=== PATIENT | female | born 1935 | race Caucasian/White ===

== ENCOUNTER 2017-11-23 11:53 | Emergency (ER) | payer MEDICARE, OTHER ==
[~2017-11-23] VITALS: Ht 157.5 cm; Wt 57.1 kg
[~2017-11-23 11:53] MED LIST: ACETAMINOPHEN325 M1 PO; ADVAIR 250-501 EACH IH; ALBUTEROL INH INH; ALBUTEROL2.5 MG/31 INH; ASCORBIC ACID250 MG; ASPIRIN EC81 M1 PO; AUGMENTIN 875875 MG PO; AVELOX 400 MG400 MG PO; AZITHROMYCIN 2250 MG PO; CEFTIN500 MG; COMBIVENT; COMBIVENT INH; DUONEB 2.5-0.5 M3 ML INH; FISH OIL 1,0001 EAC5 PO; FISH OIL 1,001000 M1 PO; IRON325 PO; MECLIZINE HCL12.5 MG PO; MIRALAX17 GM PO; MUCUS ER600 MG PO; MULTIVITAMINS; Mucinex PO; NOHOMEMEDICATIONS; PREDNISONE 10 M10 M1; PREDNISONE 10 M10 M1 PO; PREDNISONE 10 M10 MG PO; PRILOSEC40 MG PO; PROTONIX40 M1 PO; PROTONIX40 M2; PROTONIX40 M2 PO; TESSALON200 MG PO; VIBRAMYCIN 100100 MG PO; VITAMIN C 250250 MG PO; XANAX 0.25 MG0.25 MG PO; ZPAK PO; [UNRECOGNIZED DRUG - OTHER]
[2017-11-23 13:07] LABS: ABSOLUTE EOSINOPHILS 0.1 thou/uL (0.0-0.7); ABSOLUTE LYMPHOCYTES 0.7 thou/uL (0.8-5.3); ABSOLUTE MONOCYTES 0.3 thou/uL (0.0-1.2); ABSOLUTE NEUTROPHILS 1.6 thou/uL (1.6-8.1); BASOPHILS 1.1 %; EOSINOPHILS 3.8 %; HEMATOCRIT 33.8 % (37.0-47.0); HEMOGLOBIN 11.1 gm/dL (12.0-15.0); LYMPHOCYTES 24.2 %; MCH 31.2 pg (26.0-34.0); MCHC 32.8 g/dL (28.0-37.0); MONOCYTES 11.6 %; NUCLEATED RBCS 0 /100WBC; PLATELET COUNT* 133 thou/uL (150-400); POLYS 59.3 %; RBC 3.55 mil/uL (4.20-5.00); RDW-CV 14.9 % (10.5-14.5); WBC 2.7 thou/uL (4.0-11.0)
[2017-11-23 13:10] LABS: URINE BILIRUBIN NEGATIVE (Negative); URINE BLOOD NEGATIVE (Negative); URINE CLARITY CLEAR; URINE COLOR YELLOW; URINE GLUCOSE-RANDOM NEGATIVE (Negative); URINE KETONES NEGATIVE (Negative); URINE LEUKOCYTES-REFLEX NEGATIVE (Negative); URINE NITRITE-REFLEX NEGATIVE (Negative); URINE PROTEIN NEGATIVE (Negative); URINE SPECIFIC GRAVITY 1.025 (1.005-1.030); URINE UROBILINOGEN 0.2 E.U./dl (0.2-1.0)
[2017-11-23 13:16] LABS: ANION GAP 2 mmol/L (7-16); BUN 21 mg/dL (7-18); CALCIUM 8.9 mg/dL (8.5-10.1); CHLORIDE 103 mmol/L (98-107); CO2 39 mmol/L (21-32); CREATININE 0.5 mg/dL (0.6-1.3); GLUCOSE 96 mg/dL (70-99); POTASSIUM 4.5 mmol/L (3.5-5.1); SODIUM 144 mmol/L (136-145)
[2017-11-23 13:27] LABS: ALBUMIN 3.4 g/dL (3.4-5.0); ALKALINE PHOSPHATASE 62 U/L (46-116); NT-PRO BRAIN NAT PEPTIDE 1047 pg/mL (<300); SGOT 21 U/L (15-37); SGPT 20 U/L (30-65); TOTAL BILIRUBIN 0.3 mg/dL (<0.1-1.0); TOTAL PROTEIN 6.5 g/dL (6.4-8.2); TROPONIN-I LEVEL <0.06 ng/mL (<0.06)
--- NOTE | 2017-11-23 15:29 | EKG ---
[place] [address] ELECTROCARDIOGRAM REPORT Name: SHANTE JOLLY Room: [facility]#: [id number] Admission: 11/23/17 Attend Phys: Discharge: Date of : 33 Report #: [id number] THIS REPORT FOR: //name// [facility] ED Test Date: 2017-11-23 Test Time: 11:59:23 Pat Name: SHANTE JOLLY Department: Room: Gender: F Employee Relations Director: : 1935 Requested By: Amina Vargas Order Number: [id number] Reading MD: Ajith Mccord Measurements Intervals [place] Rate: 87 P: 49 CO: 156 QRS: 46 QRSD: 80 T: 70 QT: 385 QTc: 463 Interpretive Statements Sinus rhythm Multiple premature complexes, vent & supraven Probable anteroseptal infarct, old Compared to ECG 07/06/2017 09:08:37 Myocardial infarct finding now present Electronically Signed On 11-23-2017 15:29:16 SHIP CARPENTER by Ajith Mccord [email or web address] <ELECTRONICALLY SIGNED> By: Ajith Mccord MD, [facility] 11/23/17 1529 1159 1159 Ajith Mccord MD, [facility] /EPI
[2017-11-23 16:50] VITALS: BP 130/56
--- NOTE | 2017-11-23 17:01 | 2DMMODE ---
[place] [address] 2 D/M-MODE ECHOCARDIOGRAM Name: SHANTE JOLLY Room: [facility]#: [id number] Admission: 11/23/17 Attend Phys: Discharge: 11/23/17 Date of : 33 Date of Service: 11/23/17 1701 Report #: [id number] THIS REPORT FOR: //name// APPROVED REPORT Study performed: 11/23/2017 14:11:18 EXAM: Comprehensive 2D, Doppler, and color-flow Echocardiogram Patient Location: In-Patient Room #: ER Status: routine BSA: 1.57 HR: 74 bpm BP: 136/81 mmHg Rhythm: NSR Other Information Study Quality: Good Indications Arrhythmia Murmur 2D Dimensions LVEF(%): 57.38 (>50%) IVSd: 11.99 (7-11mm) LVOT Diam: 19.60 (18-24mm) LVDd: 45.09 mm PWd: 11.22 (7-11mm) LVDs: 31.55 (25-40mm) Aortic Root: 29.38 mm Mills's LVEF: 57.38 % Volumes Left Atrial Volume (Systole) LA ESV Index: 40.50 mL/m2 Aortic Valve AoV Peak Marcus.: 3.50 m/s AO Peak Gr.: 48.99 mmHg LVOT Max P.06 mmHg AO Mean Gr.: 29.80 mmHg LVOT Mean P.68 mmHg LVOT Max V: 0.88 m/s AO V2 VTI: 76.91 cm LVOT Mean V: 0.60 m/s PIO (VTI): 0.83 cm2 LVOT V1 VTI: 21.06 [place] [address] 2 D/M-MODE ECHOCARDIOGRAM Name: SHANTE JOLLY Room: [facility]#: [id number] Admission: 11/23/17 Attend Phys: Discharge: 11/23/17 Date of : 33 Date of Service: 11/23/17 1701 Report #: [id number] E/A Ratio: 0.76 MV Decel. Time: 314.94 ms MV E Max Marcus.: 1.05 m/s MV PHT: 91.33 ms MVA (PHT): 2.41 cm2 TDI E/Lateral E': 13.13 E/Medial E': 17.50 Medial E' Marcus.: 0.06 m/s Lateral E' Marcus.: 0.08 m/s Pulmonary Valve PV Peak Marcus.: 0.82 m/s PV Peak Gr.: 2.70 mmHg Left Ventricle The left ventricle is normal size. There is normal LV segmental wall motion. Severe concentric left ventricular hypertrophy. Left ventricular systolic function is normal. The left ventricular ejection fraction is within the normal range. LVEF is 60-65%. Grade I - abnormal relaxation pattern. Right Ventricle The right ventricle is normal size. The right ventricular systolic function is normal. Atria Left atrium is moderately dilated. The right atrium size is normal. Aortic Valve Aortic valve leaflets are sclerotic with decreased opening. Trace aortic regurgitation. Severe aortic stenosis. Mitral Valve There is mitral annular calcification. Trace mitral regurgitation. No evidence of mitral valve stenosis. Tricuspid Valve The tricuspid valve is normal in structure. Unable to assess PA pressure. Trace tricuspid regurgitation. Pulmonic Valve The pulmonary valve is normal in structure. Mild pulmonic regurgitation. [place] [address] 2 D/M-MODE ECHOCARDIOGRAM Name: SHANTE JOLLY Room: [facility]#: [id number] Admission: 11/23/17 Attend Phys: Discharge: 11/23/17 Date of : 34 Date of Service: 11/23/17 1701 Report #: [id number] The aortic root is normal in size. IVC is normal in size and collapses with >50% inspiration Pericardium There is no pericardial effusion. <Conclusion> LVEF is 60-65%. Severe aortic stenosis. Trace aortic regurgitation. No evidence of mitral valve stenosis. Trace mitral regurgitation. Left atrium is moderately dilated. Severe concentric left ventricular hypertrophy. There is normal LV segmental wall motion. <ELECTRONICALLY SIGNED> By: Ajith Mccord MD, FACC 11/23/171700 00 00 Ajith Mccord MD, FACC /INF
== END 2017-11-23 16:51 | disposition home or self-care (01) ==
LOC: M.ERS 11:53
PROVIDERS: Personal Emergency Response Attendant
DX: I49.9 Cardiac arrhythmia, unspecified (principal); I49.3 Ventricular premature depolarization; J44.9 Chronic obstructive pulmonary disease, unspecified; Z98.890 Other specified postprocedural states

== ENCOUNTER 2018-02-24 14:37 | Inpatient (IN) | payer MEDICARE, OTHER ==
[~2018-02-24] VITALS: Ht 160 cm; Wt 52.6 kg
[2018-02-24 14:38] VITALS: BP 103/41
[2018-02-24] MEDS ORDERED: REMERON15 MG PO (14:51)
[2018-02-24 15:13] LABS: ABSOLUTE EOSINOPHILS 0.1 thou/uL (0.0-0.7); ABSOLUTE LYMPHOCYTES 0.5 thou/uL (0.8-5.3); ABSOLUTE MONOCYTES 0.4 thou/uL (0.0-1.2); ABSOLUTE NEUTROPHILS 2.9 thou/uL (1.6-8.1); BASOPHILS 0.7 %; EOSINOPHILS 2.4 %; HEMATOCRIT 25.1 % (37.0-47.0); HEMOGLOBIN 7.8 gm/dL (12.0-15.0); LYMPHOCYTES 13.8 %; MCH 32.3 pg (26.0-34.0); MCHC 31.1 g/dL (28.0-37.0); MCV 103.8 fL (80.0-100.0); MONOCYTES 10.1 %; NUCLEATED RBCS 0 /100WBC; PLATELET COUNT* 180 thou/uL (150-400); RBC 2.42 mil/uL (4.20-5.00); WBC 3.9 thou/uL (4.0-11.0)
[2018-02-24 15:17] LABS: ANION GAP 0 mmol/L (7-16); BUN 22 mg/dL (7-18); CALCIUM 8.6 mg/dL (8.5-10.1); CHLORIDE 103 mmol/L (98-107); CO2 42 mmol/L (21-32); CREATININE 0.6 mg/dL (0.6-1.3); GLUCOSE 121 mg/dL (70-99); SODIUM 145 mmol/L (136-145)
[2018-02-24 15:28] LABS: ALBUMIN 2.8 g/dL (3.4-5.0); ALKALINE PHOSPHATASE 54 U/L (46-116); NT-PRO BRAIN NAT PEPTIDE 3198 pg/mL (<300); SGOT 23 U/L (15-37); SGPT 22 U/L (30-65); TOTAL BILIRUBIN 0.1 mg/dL (<0.1-1.0); TOTAL PROTEIN 5.6 g/dL (6.4-8.2); TROPONIN-I LEVEL <0.06 ng/mL (<0.06)
[2018-02-24 17:45] VITALS: BP 150/51
[2018-02-24 17:58] VITALS: BP 126/66
[2018-02-24] MEDS ORDERED: FERREX 150150 MG PO (18:00)
[2018-02-24 18:10] VITALS: BP 113/55; BP 128/64; BP 130/42; BP 133/40
--- NOTE | 2018-02-24 18:31 | NUR ---
REPORT RECIEVED FROM SELENA COTE IN ER OF EXPECTED TRANSFER @ 1730- DX: SOA WITH SLIGHT CONFUSSION PER DAUGHTER- PT ARRIVED TO ROOM 210 PER CART AT 1745, ASSIST X1 TO BED- MACHINE STONECUTTER PLACED INDICATED, TRACING SR-DAUGHTER AT SIDE AT TIME OF ADMISSION- PT A&O X4- CONTINENT OF BOWEL BLADDER- SBA WITH TRANSFERS FOR SAFETY- VS- 98.3 22 150/51 99 985 ON 4L VIA NC- DYSPNEA NOTED ON EXERTION- ABDOMEN SOFT/ROUND/NON-TENDER, BS X4 QUADS- PT REPORTS TO HAVE HAD BM THIS AM- TRACE EDEAM NOTED TO BLE- SKIN C/D/I- EYE SIGHT GOOD WITH AIDES IN PLACE- UPPPER DENTURE NOTED- IV NOTED TO RIGHT AC INTACT WITH NS STARTED PER ORDERS FOR BLOOD TO BE TRANSFUSED UPON ADMISSION- BLODD RECIEVED ADN VERIFIED PER PROTOCOL WITH START TIME OF 1734- VS REMAIN STABLE WITH NO ADVERSE RECTIONS TO NOTE AT THIS TIME- PT DENIES ANY C/O PAIN/DISCOMFORT AT THIS TIME- GOOD PO INTAKE NOTED WITH DINNER- CALL LIGHT ADN PERSONAL BELONGINGS WITH IN REACH- FREQUENT CHECKS IN PLACE R/T SAFETY/NEEDS- ALL NEEDS MET AT THIS TIME-WCTM
[2018-02-24 19:35] VITALS: BP 113/55
[2018-02-24 20:00] VITALS: BP 113/55
[2018-02-24 23:08] LABS: HEMATOCRIT 30.2 % (37.0-47.0)
[2018-02-24 23:09] LABS: HEMOGLOBIN 9.8 gm/dL (12.0-15.0)
[2018-02-25 00:07] VITALS: BP 131/62
--- NOTE | 2018-02-25 03:21 | NUR ---
ASSUMED CARE OF PT AT 1930, NURSING ASSESSMENT COMPLETED AT START OF SHIFT, 1 UNIT PRBCS ADMINISTERED THIS SHIFT. NO S/S OF ADVERSE SIDE EFFECTS. VSS. HOURLY ROUNDING COMPLETED, FALL PRECAUTIONS IN PLACE. PT TRACING ATRIAL BIGEMINY ON PHYSICIAN'S AIDE THIS SHIFT. PT DENIES PAIN. CALL LIGHT WITHIN REACH.
[2018-02-25 03:52] VITALS: BP 117/51
[2018-02-25 05:15] LABS: HEMATOCRIT 27.9 % (37.0-47.0); HEMOGLOBIN 9.1 gm/dL (12.0-15.0); MCH 32.7 pg (26.0-34.0); MCHC 32.8 g/dL (28.0-37.0); MCV 99.9 fL (80.0-100.0); MPV 10.7 fl. (7.2-11.1); NUCLEATED RBCS 0 /100WBC; PLATELET COUNT* 173 thou/uL (150-400); RBC 2.79 mil/uL (4.20-5.00); RDW-CV 18.8 % (10.5-14.5); WBC 3.2 thou/uL (4.0-11.0)
[2018-02-25 05:51] LABS: ABSOLUTE LYMPHOCYTES 0.4 thou/uL (0.8-5.3); ABSOLUTE MONOCYTES 0.1 thou/uL (0.0-1.2); ABSOLUTE NEUTROPHILS 2.7 thou/uL (1.6-8.1); PLATELET ESTIMATE ADEQUATE
[2018-02-25 05:52] LABS: ANISOCYTOSIS 1+; LARGE PLATELETS OCCASIONAL; POIKILOCYTOSIS 1+; POLYCHROMASIA 1+
[2018-02-25 06:20] LABS: ALBUMIN 2.8 g/dL (3.4-5.0); CALCIUM 8.5 mg/dL (8.5-10.1); CREATININE 0.5 mg/dL (0.6-1.3); POTASSIUM 4.8 mmol/L (3.5-5.1); TOTAL BILIRUBIN 0.3 mg/dL (<0.1-1.0); TOTAL PROTEIN 5.3 g/dL (6.4-8.2)
[2018-02-25 08:00] VITALS: BP 124/56
--- NOTE | 2018-02-25 10:05 | EKG ---
[place] [address] ELECTROCARDIOGRAM REPORT Name: SHANTE JOLLY Room: [address] ADM IN [facility]#: [id number] Admission: 02/24/18 Attend Phys: Nicki Jasmine Discharge: Date of : 34 Report #: [id number] THIS REPORT FOR: //name// [facility] ED Test Date: 2018-02-24 Test Time: 14:47:22 Pat Name: SHANTE JOLLY Department: Room: [facility] Gender: F Research Quality Assurance Specialist: MS : 1935 Requested By: Benjamin May Order Number: [id number] MD: Tay Carrasco Measurements Intervals [place] Rate: 83 P: 85 AL: 150 QRS: 18 QRSD: 82 T: 78 QT: 383 QTc: 450 Interpretive Statements atrial fibrillation Borderline T abnormalities, lateral leads Compared to ECG 11/23/2017 11:59:23 T-wave abnormality now present Sinus rhythm no longer present Electronically Signed On 02-25-2018 10:05:33 CDT by Tay Carrasco [email or web address] <ELECTRONICALLY SIGNED> By: Tay Carrasco MD, [facility] 02/25/18 1005 1447 1447 Tay Carrasco MD, [facility] /EPI
--- NOTE | 2018-02-25 11:05 | NUR ---
ASSUMED RESPONSIBILITY OF PT THIS AM PT IS ALERT AND ORIENTED FORGETFUL AT TIMES SR ON THE MONITOR HS NURSE STATED BIGEMINY LAST HS HEART HEALTHY DIET WITH GOOD APPETITE DRY WARM SKIN NO EDEMA NOTED BLE ELEVATED 5L NC WEARS 2L NC AT HOME SATS 94% FATIGUE WHEN UP 26 RESP SLIGHTLY LABORED LSCTA DIMINISHED IN BASES DARK YELLOW URINE NO BM YET CALL LIGHT IN REACH GI TO SCHEDULE EGD FOR TOMORROW FOR PT NOT F/U OUTPATIENT BEFORE AFTER A CAPSULE DONE WITH A BLEED NOTED
[2018-02-25 12:00] VITALS: BP 107/51
--- NOTE | 2018-02-25 15:23 | NUR ---
CM ASSESSMENT: Pt is A&O. Resides at [facility]. Pt known to this Cm from previous hospital stay. Pt uses a RW for mobility. Hx of [facility] skilled. Independent with ADLs, Pt hires someone to clean her home. No hx of HH. Pt wears home o2 through [employer]. Supportive family that is involved in POC. Scheduled to have an EGD tomorrow. Following.
[2018-02-25 15:36] VITALS: BP 110/49
--- NOTE | 2018-02-25 19:06 | NUR ---
PT DENIES PAIN T/O DAY STILL WITH SOA AT TIMES BUT NO OTHER CONCERNS AT THIS TIME
[2018-02-25 20:00] VITALS: BP 116/52
--- NOTE | 2018-02-25 22:48 | NUR ---
ASSUMED PT CARE AT 1915. RECEIVED REPOT FROM NURSE. PT IS ALERT, AWAKE, ORIENTED 3. CONUSED AND FORGETFUL AT TIMES. VITALS SIGNS WITHIN NORMAL LIMIT. NO COMPLAIN OF PAIN. ASSESSMENT PERFORMED. REFER TO CHART. O2 SATURATION IS 95 ON 4 L NC. SR ON THE MONITOR. PLAN TO BE NPO AT MIDNIGHT FOR EGD TOMORROW AND TO MAINTAIN OXGENATION. IV LINE IS PATENT. NO IV FLUID INUSING AT THIS TIME.SKIN IS INTACT.
[2018-02-26] VITALS (7 sets, daily range): BP systolic 110–135; BP diastolic 40–63
[2018-02-26 05:18] LABS: ABSOLUTE LYMPHOCYTES 0.2 thou/uL (0.8-5.3); ABSOLUTE MONOCYTES 0.2 thou/uL (0.0-1.2); ABSOLUTE NEUTROPHILS 6.9 thou/uL (1.6-8.1); LYMPHOCYTES 3.4 %; MCH 32.8 pg (26.0-34.0); MCHC 32.3 g/dL (28.0-37.0); MCV 101.5 fL (80.0-100.0); MPV 11.5 fl. (7.2-11.1); NUCLEATED RBCS 0 /100WBC; PLATELET COUNT* 200 thou/uL (150-400); POLYS 93.6 %; RBC 3.05 mil/uL (4.20-5.00); RDW-CV 19.5 % (10.5-14.5); WBC 7.3 thou/uL (4.0-11.0)
[2018-02-26 05:28] LABS: ALBUMIN 3.1 g/dL (3.4-5.0); CALCIUM 9.4 mg/dL (8.5-10.1); CREATININE 0.6 mg/dL (0.6-1.3); POTASSIUM 5.1 mmol/L (3.5-5.1); TOTAL BILIRUBIN 0.2 mg/dL (<0.1-1.0); TOTAL PROTEIN 6.2 g/dL (6.4-8.2)
--- NOTE | 2018-02-26 08:55 | NUR ---
ASSUMED CARE OF PATIENT AFTER REPORT THIS MORNING. PATIENT AWAKE, ALERT, AND ORIENTED APPROPRIATELY. PHYSICAL ASSESSMENT COMPLETED AND CHARTED. NO COMPLAINTS OF PAIN. NPO FOR EGD TODAY, CONSENT SIGNED AND ON CHART. VITAL SIGNS STABLE. OXYGEN SATURATION WITHIN NORMAL LIMITS ON 3 LPM PER NASAL CANULA. PATIENT TRANSFERS AND AMBULATES WITH ASSISTANCE FROM STAFF. DENIES NEEDS AT THIS TIME. CALL LIGHT WITHIN REACH. NURSING WILL CONTINUE TO MONITOR.
--- NOTE | 2018-02-26 11:00 | CON ---
[address] [address] CONSULTATION Name: SHANTE JOLLY Room: [address] IN .R.#: [id number] Admission: 02/24/18 Attend Phys: Nicki Jasmine Discharge: Date of : 34 Report #: [id number] THIS REPORT FOR: //name// CC: Hyun Morejon DATE OF SERVICE: 02/25/2018 DIAGNOSES: Nonhodgkin lymphoma and anemia. 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 On the last visit a week ago, the patient was found to be anemic. She dropped her hemoglobin from 11 to 8.8. She was arranged to receive IV iron. She received her first dose of Feraheme last week and she is scheduled for a second dose on February 28. The patient was admitted because of shortness of breath worsened with change in mental status and hypoxia in the 85% earlier. The patient received blood transfusion. Her hemoglobin was found to be 7.8 upon admission. After transfusion, the patient was feeling significantly better. She is more awake, alert, oriented. Her hemoglobin improved to 9.8. She was seen by GI and capsule endoscopy showed small angioectasia in the duodenum. REVIEW OF SYSTEMS: All systems reviewed. It was negative except the above. PAST MEDICAL HISTORY: Stage I follicular lymphoma treated with definitive radiation 3 months ago, COPD, PVCs. ALLERGIES: No known allergies. MEDICATIONS: Per admission list. PAST SURGICAL HISTORY: Appendectomy. SOCIAL HISTORY: No smoking, no alcohol abuse, no drug abuse. FAMILY HISTORY: Noncontributory. PHYSICAL EXAMINATION: VITAL SIGNS: Today temperature 37.0, pulse 81, respirations 17, blood pressure is 107/51, SpO2 was 96% on 5 liters. GENERAL: The patient was sitting in chair, was not in acute distress. LUNGS: Clear to auscultation bilaterally. HEART: With a regular rate and rhythm, S1, S2 [place] [address] CONSULTATION Name: SHANTE JOLLY Room: [address]#: [id number] Admission: 02/24/18 Attend Phys: Nicki Jasmine Discharge: Date of : 34 Report #: [id number] ABDOMEN: Soft, nontender, nondistended, bowel sounds positive. LABORATORY DATA: WBC 3.2, hemoglobin 9.1, platelets 173. Creatinine 0.5. IMAGING: Chest x-ray showed mild cardiomegaly with vascular congestion and small effusion abutting the right costophrenic angle. ASSESSMENT AND PLAN: 1. An 82-year-old female was evaluated because of anemia, most likely the patient is having an active blood loss. I started her on IV iron with Feraheme a week ago; however, the patient was admitted because of worsening of her anemia. She received blood transfusion. GI workup is in progress. The patient had a bone marrow biopsy back in June 2017 which showed hypercellular marrow with no evidence of lymphoma; however, there was no stainable iron. The patient was treated with oral iron, which she failed as an outpatient. At this point, I agree with IV iron and supportive transfusion, waiting for her colonoscopy. 2. Stage I follicular lymphoma treated with definitive radiation. Most recent CT scan 3 months post-treatment showed resolution of her lymphoma. We will monitor her every 3 months. <ELECTRONICALLY SIGNED> By: Monica Roque MD 02/26/18 1100 1236 Yeison Roque MD /nt
[2018-02-26 11:44] LABS: % SATURATION 75 % (20-39); IRON 451 ug/dL (50-175)
--- NOTE | 2018-02-26 17:54 | NUR ---
PATIENT REMAINS ALERT AND ORIENTED APPROPRIATELY, FORGETFUL. TRANSFERS AND AMBULATES WITH ASSISTANCE FROM STAFF. USES CALL LIGHT APPROPRIATELY. DENIES NEEDS AT THIS TIME. CALL LIGHT WITHIN REACH. NURSING WILL CONTINUE TO MONITOR.
[2018-02-27] VITALS (7 sets, daily range): BP systolic 114–131; BP diastolic 47–69
[2018-02-27 04:54] LABS: ABSOLUTE LYMPHOCYTES 0.6 thou/uL (0.8-5.3); ABSOLUTE MONOCYTES 0.8 thou/uL (0.0-1.2); ABSOLUTE NEUTROPHILS 5.8 thou/uL (1.6-8.1); BASOPHILS 0.1 %; EOSINOPHILS 0.6 %; HEMATOCRIT 30.8 % (37.0-47.0); HEMOGLOBIN 9.9 gm/dL (12.0-15.0); LYMPHOCYTES 8.6 %; MCH 32.8 pg (26.0-34.0); MCV 102.7 fL (80.0-100.0); MONOCYTES 10.5 %; MPV 11.2 fl. (7.2-11.1); NUCLEATED RBCS 0 /100WBC; PLATELET COUNT* 186 thou/uL (150-400); POLYS 80.2 %; RDW-CV 19.9 % (10.5-14.5); WBC 7.2 thou/uL (4.0-11.0)
--- NOTE | 2018-02-27 05:16 | NUR ---
ASSUMED CARE AROUND 1930. PT ORIENTEDX3, CONFUSED DURING NIGHT BUT VERY PLEASANT, SLEPT THE MAJORITY OF SHIFT. TELE TRACING SR. VSS, AFEBRILE. ON 3L NC. UP SBA TO BSC. NO BM THIS SHIFT. IV SALINE LOCKED. DENIED ANY PAIN. NO NEW CONCERNS VOICED. CALL LIGHT IN REACH, BEDALARM ON,WILL CONTINUE WITH PLAN OF CARE.
[2018-02-27 05:32] LABS: ALBUMIN 2.9 g/dL (3.4-5.0); ALKALINE PHOSPHATASE 51 U/L (46-116); ANION GAP < 0 mmol/L (7-16); BUN 34 mg/dL (7-18); CALCIUM 8.9 mg/dL (8.5-10.1); CHLORIDE 106 mmol/L (98-107); CO2 42 mmol/L (21-32); CREATININE 0.6 mg/dL (0.6-1.3); GLUCOSE 92 mg/dL (70-99); POTASSIUM 4.5 mmol/L (3.5-5.1); SGOT 21 U/L (15-37); SGPT 25 U/L (30-65); SODIUM 147 mmol/L (136-145); TOTAL BILIRUBIN 0.3 mg/dL (<0.1-1.0); TOTAL PROTEIN 5.1 g/dL (6.4-8.2)
--- NOTE | 2018-02-27 09:51 | NUR ---
ASSUMED CARE OF PATIENT AFTER REPORT THIS MORNING. PATIENT AWAKE, ALERT, AND ORIENTED TO SELF, PLACE, AND TIME. PHYSICAL ASSESSMENT COMPLETED AND CHARTED. NO COMPLAINTS OF PAIN. SCHEDULED MEDICATIONS GIVEN, SEE EMAR FOR DOCUMENTATION. VITAL SIGNS STABLE. OXYGEN SATURATION WITHIN NORMAL LIMITS ON 3 LPM PER NASAL CANULA. PATIENT TRANSFERS AND AMBULATES WITH ASSISTANCE FROM STAFF. USES CALL LIGHT APPROPRIATELY. DENIES NEEDS AT THIS TIME. CALL LIGHT WITHIN REACH. NURSING WILL CONTINUE TO MONITOR.
--- NOTE | 2018-02-27 11:23 | NUR ---
Spoke with Pt regarding disposition, plan is for Pt to dc to home with HH. Discussed HH with Pt, Pt stated that she already has HH and asked that CM contact her dtr, Rand. CM left message for dtr, waiting for call back. Anticipate dc soon.
--- NOTE | 2018-02-27 17:44 | NUR ---
PATIENT REMAINS ALERT AND ORIENTED TO SELF, PLACE, AND TIME. HAS BEEN UP TO BEDSIDE COMMODE THIS SHIFT WITH ASSISTANCE FROM STAFF. USES CALL LIGHT APPROPRIATELY. DENIES NEEDS AT THIS TIME. CALL LIGHT WITHIN REACH. NURSING WILL CONTINUE TO MONITOR.
[2018-02-28 04:00] VITALS: BP 128/54
[2018-02-28 04:41] LABS: ABSOLUTE EOSINOPHILS 0.1 thou/uL (0.0-0.7); ABSOLUTE LYMPHOCYTES 0.7 thou/uL (0.8-5.3); ABSOLUTE MONOCYTES 0.6 thou/uL (0.0-1.2); ABSOLUTE NEUTROPHILS 4.1 thou/uL (1.6-8.1); BASOPHILS 0.1 %; EOSINOPHILS 2.3 %; HEMATOCRIT 31.4 % (37.0-47.0); HEMOGLOBIN 9.9 gm/dL (12.0-15.0); LYMPHOCYTES 13.1 %; MCH 32.7 pg (26.0-34.0); MCHC 31.6 g/dL (28.0-37.0); MCV 103.7 fL (80.0-100.0); MPV 11.3 fl. (7.2-11.1); NUCLEATED RBCS 0 /100WBC; PLATELET COUNT* 172 thou/uL (150-400); POLYS 73.5 %; RBC 3.03 mil/uL (4.20-5.00); RDW-CV 20.1 % (10.5-14.5); WBC 5.5 thou/uL (4.0-11.0)
[2018-02-28 04:57] LABS: ALBUMIN 2.8 g/dL (3.4-5.0); CALCIUM 8.5 mg/dL (8.5-10.1); CREATININE 0.7 mg/dL (0.6-1.3); POTASSIUM 4.5 mmol/L (3.5-5.1); TOTAL BILIRUBIN 0.3 mg/dL (<0.1-1.0); TOTAL PROTEIN 5.1 g/dL (6.4-8.2)
--- NOTE | 2018-02-28 06:46 | NUR ---
Pt reports she rested well. Remains on 3L per NC. At one point pt had misplaced NC (which had fallen to floor on one side of her bed), and pt had gotten out of bed to look for it. HR was in 120s at the time, but settled back to 80s-90s shortly after NC replaced and assisted back to bed. VSS. No complaints. Will continue to monitor.
[2018-02-28 08:23] VITALS: BP 138/56
--- NOTE | 2018-02-28 10:18 | NUR ---
Pt discharging to [facility] today, facility to bulk picker at 130pm. Faxed dc orders. Chart copied. Nurse report number provided, [phone]. Updated Pt's dtr.
--- NOTE | 2018-02-28 10:20 | NUR ---
ORDER RECEIVED FOR "OT EVALUATION AND TREATMENT". PT SCHEDULED TO DISCHARGE TO INTERMEDIATE FACILITY TODAY AT 1330 PER CASE MANAGEMENT.
--- NOTE | 2018-02-28 10:25 | NUR ---
RECEIVED REPORT AND ASSUMED CARE AT 0730. VSS. CARDIAC MONITORING IN PLACE. PT DENIES ANY COMPLAINTS OF PAIN. DISCUSSED PLAN OF CARE WITH PT, VERBALIZED UNDERSTANDING. PT PLANNING TO D/C TO SNF THIS AFTERNOON. CASE MANAGEMENT AWARE. ASSESSMENT COMPLETED CHARTED. PT UP WITH SBA TO [facility], 3L NC. BED IN LOWEST POSITION, BED ALARM ON, CALL LIGHT WITHIN REACH. WILL CONTINUE TO MONITOR FOR REMAINDER OF THE SHIFT
[2018-02-28 12:00] VITALS: BP 141/67
[2018-02-28] MEDS ORDERED: DULCOLAX5 MG PO (12:48)
[2018-02-28] MEDS ORDERED: BENADRYL25 MG PO (12:49)
[2018-02-28] MEDS ORDERED: MILK OF MA2400 MG/10 PO (12:59)
[2018-02-28] MEDS ORDERED: PHENERGAN 25 MG25 M1 PO (13:06)
[2018-02-28] MEDS ORDERED: ALUM-MAG HYDRO360 ML PO (13:08)
[2018-02-28] MEDS ORDERED: TYLENOL325 MG PO (13:15)
[2018-02-28] MEDS ORDERED: ONDANSETRON HCL4 M2 PO (13:19)
[2018-02-28] MEDS ORDERED: PREDNISONE 10 M10 MG PO (13:21)
[2018-02-28 13:24] VITALS: BP 141/67
--- NOTE | 2018-02-28 13:52 | NUR ---
DISCHARGE ORDERS PLACED IN CHART. IV AND CARDIAC MONITORING DISCONTINUED. PT DENIES ANY COMPLAINTS OF PAIN. PT BELONGINGS GATHERED AND GIVEN TO THE PT. PT BATHED AND DRESSED BEFORE LEAVING. DISCHARGE PAPERWORK COMPLETED AND PLACED IN PACKET FOR SNF. DISCUSSED WITH PT, ALL QUESTIONS AND CONCERNS ADDRESSED AT THIS TIME. PT TRANSPORTED BY WHEELCHAIR VAN TO [facility]. REPORT CALLED TO STAFF AT SNF.
--- NOTE | 2018-03-11 15:01 | CON ---
[address] [address] CONSULTATION Name: SHANTE JOLLY Room: [address] IN .R.#: [id number] Admission: 02/24/18 Attend Phys: Nicki Jasmine Discharge: 02/28/18 Date of : 34 Report #: [id number] THIS REPORT FOR: //name// CC: Hyun Morejon DICTATED BY: Dyan Mota [facility] DATE OF SERVICE: 02/25/2018 Please note at the time of this dictation, the patient was seen and physically examined by myself. REASON FOR CONSULTATION: Acute anemia requiring blood transfusion. HISTORY OF PRESENT ILLNESS: This is an 82-year-old female who presented to the Emergency Room with increasing shortness of breath which had been become increasingly worsened over the last 2 days. The patient is on continuous O2 at home, usually around 2 liters secondary to her COPD. Daughter had noticed that she had a little bit of confusion and had noted the shortness of breath as well. She denied any nausea, vomiting, abdominal pain or any change in her bowel habits, noticing any bright red blood or any melena noted at this time. The patient did undergo an EGD and colonoscopy in June of 2017 for hemoglobin of 5.8 in which she was transfused at that time as well. Upper endoscopy showed a small hiatal hernia and some duodenitis. Colonoscopy showed diverticulosis and internal and external hemorrhoids as she does have a history of rectal polyps in the past. The patient underwent a small bowel capsule in our office on August 20 which showed a single angioectasia noted in the duodenum, located approximately 1 minute passing from the pylorus. Numerous attempts were to contact the patient via phone call and finally in speaking with the daughter, she declined to have any further testing done at that time because she felt her mother had already been through a lot and her hemoglobin was stable at 14. A letter was sent to the patient for followup in 2 months and that has never been done. The patient does only take an aspirin daily as well. She denies any regular NSAID use. ALLERGIES: No known drug allergies. MEDICATIONS: From home include Remeron, Protonix, MiraLax, nebulizer, Xanax, iron and aspirin daily. PAST MEDICAL HISTORY: History of non-Hodgkin's lymphoma, COPD requiring O2 and anemia. PAST SURGICAL HISTORY: [place] [address] CONSULTATION Name: SHANTE JOLLY Room: [address]#: [id number] Admission: 02/24/18 Attend Phys: Nicki Jasmine Discharge: 02/28/18 Date of : 34 Report #: [id number] FAMILY HISTORY: Noncontributory. SOCIAL HISTORY: Denies any alcohol, tobacco or illegal drug use, tobacco in her remote past. REVIEW OF SYSTEMS: Twelve-point review of systems is essentially negative except what is mentioned in the HPI. PHYSICAL EXAMINATION: VITAL SIGNS: Temperature 36.3, pulse 78, respirations 24, blood pressure 124/56. HEART: Regular rate and rhythm. LUNGS: Diminished with a few expiratory wheezes noted. She is on 4 liters of oxygen at the present time. ABDOMEN: Soft, positive bowel sounds in all 4 quadrants with no masses or tenderness noted. LABORATORY DATA: Hemoglobin on admission was 7.8. She had required a transfusion last week, unaware of what her hemoglobin was. Currently yesterday after transfusion, she was 9.8, today she is 9.1, hematocrit is 27.9, white count is 3.2, platelets 173. Sodium 146, potassium 4.8, chloride 105, CO2 39, BUN is 19, creatinine 0.5, GFR is 118 and glucose is 146. BNP was 3198. IMPRESSION: 1. Acute anemia requiring blood transfusion, noted on small bowel capsule in August. She had a single angioectasia noted in the duodenum. 2. Chronic obstructive pulmonary disease, O2 dependent. 3. History of non-Hodgkin's lymphoma. 4. History of rectal polyps. PLAN: 1. EGD tomorrow with Dr. Russ with possible push enteroscopy. 2. Continue her Protonix daily. 3. Further recommendations to be made once the procedure has been performed. Thank you for allowing us to participate in this patient's care. Please do not hesitate to call with any questions in regard to this consult. ADDENDUM This is an 82-year-old female who is well known to us as she has had workup for her anemia and a small bowel capsule endoscopy, which had showed small angioectasia. She presents with acute over chronic anemia and symptoms of shortness of air and weakness. She is O2 dependent secondary to COPD. We will consider upper endoscopy to further evaluate her anemia and possibly treat the [address] [address] CONSULTATION Name: SHANTE JOLLY Room: [address] IN M.R.#: [id number] Admission: 02/24/18 Attend Phys: Nicki Jasmine Discharge: 02/28/18 Date of : 34 Report #: [id number] small angioectasia in the proximal small bowel. We will make further recommendation after the upper endoscopy is complete. <ELECTRONICALLY SIGNED> By: Jm Russ MD 03/11/18 1501 1112 1811Jm Russ MD /nt
== END 2018-02-28 13:55 | DRG 377 ==
LOC: M.ERS 14:37 → M.TBA-ER 17:01 → M.2W 17:01
PROVIDERS: Emergency Medicine Emergency Medical Services; ADMIT Internal Medicine
PROC: 30233N1 Transfusion of Nonautologous Red Blood Cells into Peripheral Vein, Percutaneous Approach (ICD-10-PCS; principal; 2018-02-24)
PROC: 0DJ08ZZ Inspection of Upper Intestinal Tract, Via Natural or Artificial Opening Endoscopic (ICD-10-PCS; 2018-02-26)
DX: K92.2 Gastrointestinal hemorrhage, unspecified (principal); I50.23 Acute on chronic systolic (congestive) heart failure; J96.01 Acute respiratory failure with hypoxia; G93.40 Encephalopathy, unspecified; J44.1 Chronic obstructive pulmonary disease with (acute) exacerbation; R65.10 Systemic inflammatory response syndrome (SIRS) of non-infectious origin without acute organ dysfunction; C82.00 Follicular lymphoma grade I, unspecified site; G93.1 Anoxic brain damage, not elsewhere classified; K21.9 Gastro-esophageal reflux disease without esophagitis; J44.9 Chronic obstructive pulmonary disease, unspecified; D50.8 Other iron deficiency anemias; D63.8 Anemia in other chronic diseases classified elsewhere; F41.9 Anxiety disorder, unspecified; K44.9 Diaphragmatic hernia without obstruction or gangrene; Z85.71 Personal history of Hodgkin lymphoma; Z99.81 Dependence on supplemental oxygen; Z87.19 Personal history of other diseases of the digestive system; Z90.49 Acquired absence of other specified parts of digestive tract; Z87.891 Personal history of nicotine dependence; Z79.899 Other long term (current) drug therapy; Z79.82 Long term (current) use of aspirin

== ENCOUNTER 2018-03-20 11:34 | Inpatient (IN) | payer MEDICARE, OTHER ==
[~2018-03-20] VITALS: Ht 160 cm; Wt 59.9 kg
[~2018-03-20 11:34] MED LIST changes: +ALUM-MAG HYDRO360 ML PO; +BENADRYL25 MG PO; +DULCOLAX5 MG PO; +FERREX 150150 MG PO; +MILK OF MA2400 MG/10 PO; +ONDANSETRON HCL4 M2 PO; +PHENERGAN 25 MG25 M1 PO; +REMERON15 MG PO; +TYLENOL325 MG PO
[2018-03-20 11:41] VITALS: BP 142/67
[2018-03-20 12:18] LABS: ABSOLUTE EOSINOPHILS 0.3 thou/uL (0.0-0.7); ABSOLUTE LYMPHOCYTES 0.7 thou/uL (0.8-5.3); ABSOLUTE MONOCYTES 0.4 thou/uL (0.0-1.2); ABSOLUTE NEUTROPHILS 2.4 thou/uL (1.6-8.1); BASOPHILS 1.3 %; EOSINOPHILS 6.9 %; HEMATOCRIT 30.5 % (37.0-47.0); HEMOGLOBIN 9.8 gm/dL (12.0-15.0); LYMPHOCYTES 17.3 %; MCH 32.9 pg (26.0-34.0); MCHC 32.3 g/dL (28.0-37.0); MCV 101.9 fL (80.0-100.0); MONOCYTES 11.9 %; MPV 9.9 fl. (7.2-11.1); NUCLEATED RBCS 0 /100WBC; PLATELET COUNT* 181 thou/uL (150-400); POLYS 62.6 %; RBC 2.99 mil/uL (4.20-5.00); RDW-CV 16.8 % (10.5-14.5); WBC 3.8 thou/uL (4.0-11.0)
[2018-03-20 12:22] LABS: PROTIME 9.9 Seconds (9.20-11.50)
[2018-03-20 12:36] LABS: ANION GAP 2 mmol/L (7-16); BUN 17 mg/dL (7-18); CHLORIDE 101 mmol/L (98-107); CO2 42 mmol/L (21-32); CREATININE 0.7 mg/dL (0.6-1.3); GLUCOSE 86 mg/dL (70-99); POTASSIUM 4.4 mmol/L (3.5-5.1); SODIUM 145 mmol/L (136-145)
[2018-03-20 12:47] LABS: ALBUMIN 3.2 g/dL (3.4-5.0); ALKALINE PHOSPHATASE 60 U/L (46-116); LIPASE 103 U/L (73-393); NT-PRO BRAIN NAT PEPTIDE 1916 pg/mL (<300); SGOT 18 U/L (15-37); SGPT 23 U/L (30-65); TOTAL BILIRUBIN 0.2 mg/dL (<0.1-1.0); TOTAL PROTEIN 6.2 g/dL (6.4-8.2); TROPONIN-I LEVEL <0.06 ng/mL (<0.06)
[2018-03-20 13:04] LABS: URINE BILIRUBIN NEGATIVE (Negative); URINE BLOOD NEGATIVE (Negative); URINE CLARITY CLEAR; URINE COLOR YELLOW; URINE GLUCOSE-RANDOM NEGATIVE (Negative); URINE KETONES NEGATIVE (Negative); URINE LEUKOCYTES-REFLEX NEGATIVE (Negative); URINE NITRITE-REFLEX NEGATIVE (Negative); URINE PROTEIN NEGATIVE (Negative); URINE UROBILINOGEN 0.2 E.U./dl (0.2-1.0)
[2018-03-20 13:08] LABS: BE 11.4 mmol/L (-2 to +3); HCO3 39.8 mmol/L (22.0-26.0); PO2 110.4 mmHg (75.0-100.0); pH 7.335 (7.340-7.450)
[2018-03-20 13:11] LABS: PCO2 76.3 mmHg (35.0-45.0)
[2018-03-20 14:01] VITALS: BP 153/66
[2018-03-20 14:15] VITALS: BP 143/82
[2018-03-20 16:00] VITALS: BP 138/57
--- NOTE | 2018-03-20 16:23 | NUR ---
RECEIVED REPORT FROM LANCE IN ER. PT TRANSFERRED TO TELE FLOOR AROUND 1415, ASSUMED CARE. PT A&OX4 WITH SOME FORGETFULLNESS. VSS. O2 SAT 96% ON 3L PER NC. SALESFORCE CONSULTANT PLACED TRACING ST. PT ASYMPTOMATIC WITH ST. ADMISSION EDUCATION, HISTROY AND ASSESSMENT COMPLETED CHARTED. PT ORIENTED TO ROOM, BED AND CALL LIGHT - COMMUNICATES UNDERSTANDING. IV TO LEFT AC INTACT AND SALINE LOCKED. PT DENIES PAIN OR DISCOMFORT AT THIS TIME. DAUGHTERS AT BEDSIDE UPON ADMISSION AND HAVE SINCE LEFT. PT ABLE TO EAT LUNCH WITHOUT ISSUE. PT UP WITH ASSIST X1 TO USE THE BATHROOM, VOIDING WITHOUT ISSUE. PT CURRENTLY RESTING IN BED. HIGH FALL RISK PRECAUTIONS IN PLACE. CALL LIGHT IS WITHIN REACH, HOURLY ROUNDING PERFORMED. WCTM.
--- NOTE | 2018-03-20 18:40 | NUR ---
PT REMAINS A&OX4. VSS. O2 SAT >90% ON 3L PER NC. ALCOHOL RUBBER REMAINS IN PLACE WITH NO CHANGES THIS SHIFT. PT EATING AND DRINKING WITHOUT ISSUE. PT DENIES PAIN OR DISCOMFORT. PT UP WITH ASSIST X1 TO THE BATHROOM TO VOID AND HAVE BM. PT CURRENTLY RESTING IN BED. CALL LIGHT IS WITHIN REACH, FALL PRECAUTIONS ARE IN PLACE. HOURLY ROUNDING PERFORMED. WCTM FOR DURATION OF SHIFT.
[2018-03-20 20:00] VITALS: BP 95/92
[2018-03-21] VITALS: BP 103/45
[2018-03-21 04:00] VITALS: BP 109/50
[2018-03-21 04:49] LABS: HEMATOCRIT 26.2 % (37.0-47.0); HEMOGLOBIN 8.5 gm/dL (12.0-15.0); MCH 33.3 pg (26.0-34.0); MCHC 32.4 g/dL (28.0-37.0); MCV 102.6 fL (80.0-100.0); MPV 10.4 fl. (7.2-11.1); RBC 2.55 mil/uL (4.20-5.00); RDW-CV 16.3 % (10.5-14.5); WBC 3.9 thou/uL (4.0-11.0)
--- NOTE | 2018-03-21 04:53 | NUR ---
ASSUMED CARE OF PT AT 1930, NURSING ASSESSMENT COMPLETED AT START OF SHIFT. PT VOICED NO CONCERNS, HOURLY ROUNDING COMPLETED THIS SHIFT, PT TRACING SINUS RHYTHM WI PACS THIS SHIFT. PT DENIES PAIN, FALL PRECAUTIONS IN PLACE. CALL LIGHT WITHIN REACH.
[2018-03-21 04:57] LABS: CALCIUM 8.8 mg/dL (8.5-10.1); CREATININE 0.5 mg/dL (0.6-1.3); MAGNESIUM 1.9 mg/dL (1.8-2.4); POTASSIUM 4.9 mmol/L (3.5-5.1)
[2018-03-21 05:44] LABS: BE 11.7 mmol/L (-2 to +3); HCO3 39.1 mmol/L (22.0-26.0); PO2 110.3 mmHg (75.0-100.0); pH 7.357 (7.340-7.450)
[2018-03-21 05:47] LABS: PCO2 71.3 mmHg (35.0-45.0)
[2018-03-21 08:00] VITALS: BP 124/50
--- NOTE | 2018-03-21 09:33 | EKG ---
[place] [address] ELECTROCARDIOGRAM REPORT Name: SHANTE JOLLY Room: [address] IN [facility]#: [id number] Admission: 03/20/18 Attend Phys: Milton Sanford MD Discharge: Date of : 34 Report #: [id number] THIS REPORT FOR: //name// [facility] ED Test Date: 2018-03-20 Test Time: 11:43:50 Pat Name: SHANTE JOLLY Department: Room: Gender: Warehouse Shift Supervisor: Elinor OTT : 1935 Requested By: Edward Murray Order Number: [id number] MD: Ajith Mccord Measurements Intervals [place] Rate: 94 P: 79 MN: 169 QRS: 16 QRSD: 82 T: 49 QT: 365 QTc: 457 Interpretive Statements Sinus rhythm Compared to ECG 02/24/2018 14:47:22 Atrial fibrillation no longer present T-wave abnormality no longer present Electronically Signed On 03-21-2018 9:32:46 CDT by Ajith Mccord [email or web address] <ELECTRONICALLY SIGNED> By: Ajith Mccord MD, FACC 03/21/18 0932 1143 1143 Ajith Mccord MD, [facility] /EPI
--- NOTE | 2018-03-21 11:47 | NUR ---
Pt is A&O. Known to this CM from previous hospital stay, CM discharged Pt to [facility] in mid February of this year. Pt normally resides at [facility]. Pt is normally independent with ADLs, has a paid household personal assistant. Uses a RW for mobility. Has home o2 through [employer]. Supportive family that is involved in POC. CM following for disposition.
[2018-03-21 12:26] VITALS: BP 135/51
[2018-03-21 15:43] VITALS: BP 109/52
--- NOTE | 2018-03-21 18:42 | NUR ---
RECEIVED REPORT FROM SHAYY WALTERS. ASSUMED CARE OF PT AROUND 0730. PT ALERT, ORIENTED TO PERSON AND TIME, BUT WAS CONFUSED ABOUT PLACE AND SITUATION THIS MORNING UPON WAKING UP. AFTER REORIENTATION PROVIDED, PT HAS REMAINED ORIENTED X4 THE REST OF THE SHIFT, BUT IS FORGETFUL AT TIMES. VSS. O2 SAT >90% ON 4L PER NC. IV INTACT AND SALINE LOCKED. PT HAS DENIED PAIN OR DISCOMFORT THROUGHOUT THE SHIFT. PT'S DAUGHTER VISITED THIS AM AND CALLED THIS AFTERNOON FOR UPDATE ON PLAN OF CARE. UPDATE GIVEN. DAUGHTER REPORTED THAT SHE WOULD LIKE HER MOTHER TO GO TO REHAB UPON DISCHARGE AND RECEIVED HOME HEALTH CARE AFTER THAT. PULMONARY SAW PT THIS AFTERNOON. SEE REVIEW. PT UP TO BEDSIDE COMMODE WITH ASSIST X1 FREQUENTLY TO VOID, NO ISSUES. PT RECEIVED LAXATIVE THIS AFTERNOON FOR COMPLAINT OF CONSTIPATION. PT EATING AND DRINKING WITHOUT ISSUE. PT INFORMED OF PLAN OF CARE, COMMUNICATES UNDERSTANDING. REPAIR CAMERAMAN IN PLACE TRACING SR WITH PAC'S. AM ASESSMENT AND VITALS COMPLETED CHARTED. PT CURRENTLY RESTING IN BED. FALL PRECAUTIONS ARE IN PLACE. CALL LIGHT IS WITHIN REACH, HOURLY ROUNDING PERFORMED. WCTM FOR DURATION OF SHIFT.
[2018-03-21 20:00] VITALS: BP 121/46
[2018-03-22] VITALS (7 sets, daily range): BP systolic 105–162; BP diastolic 49–86
--- NOTE | 2018-03-22 04:27 | NUR ---
ASSUMED PT CARE AT 1915. REPORT RECEIVED FROM NURSE. PT IS ALERT, AWAKE, CONFUSED AND FORGETFUL. VITALS ARE WITHIN NORMAL LIMIT. ASSESSMENT WAS PERFORMED.REFER TO CHART. PT IS CURRENTLY LAYING IN BED. GETS UP WITH X1 ASSIST TO GO USE THE BEDSIDE COMMODE. URINATES WITHOUT ANY DIFFICULTY. SINUS RYTHM ON THE MONITOR, HR STAYS IN THE 90S. NO CPMPLAINT OF PAIN. SLEEPING PILL ADMINISTERED LATER DURING THE NIGHT SINCE PT WAS HAVING DIFFICULTY SLEEPING. PT IS NOW SLEEPING WITHOUT ANY ANXIETY. WILL CONTINUE TO MONITOR.
--- NOTE | 2018-03-22 07:51 | CON ---
[address] [address] CONSULTATION Name: SHANTE JOLLY Room: [address] IN .R.#: [id number] Admission: 03/20/18 Attend Phys: Milton Sanford MD Discharge: Date of : 33 Report #: [id number] THIS REPORT FOR: //name// CC: Milton Roqeu MD REQUESTING PHYSICIAN: Milton Sanford MD REASON FOR CONSULTATION: COPD exacerbation, hypercapnia and respiratory failure. DISCUSSION: The patient is a very pleasant 82-year-old woman who has a history of underlying COPD. She is a former smoker. She does have a history of underlying COPD, which is thought to be severe. I have seen her in the office that was back in 07/2017. Follow up PFTs were recommended, but I do not believe those were ever done. She has a history of non-Hodgkin's lymphoma. She had had radiation to the right groin area over 20 years ago. However, she developed problems with anemia. 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 She underwent additional radiation therapy. She has been living at the [facility] apparently independent living. She is supposed to be on O2, though it is not clear if she has been using that consistently. She did admit to me that she was no longer doing nebulizer treatments as they made her too shaky and nervous and has not had any PFTs done. She is a very pleasant and delightful. However, she is not a very good historian. She does note that she does have some issues with her memory and her daughters are taking care of things for her. As noted, she is a former smoker. She has been on O2 at 2 liters per nasal cannula continuously, which was started, not quite a year ago when she had a hospital stay here at [place]. She does have a nebulizer at home and I believe it is suppose to be DuoNeb that she has available. However, she does admit to me now as noted that she has not been using it. She does get short of breath with exertion. Denies having much in the way of any cough or sputum production. PAST MEDICAL HISTORY: Remarkable for the COPD. Has been hypercapnic and is now O2 dependent. Had remote history of non-Hodgkin's lymphoma, which was treated with radiation to her right groin over 20 years ago. Had the follicular lymphoma found on axillary nodes within the last year, treated with radiation and had improvement on follow up imaging done at [facility] [place] [address] CONSULTATION Name: SHANTE JOLLY Room: [address] [place] M.R.#: [id number] Admission: 03/20/18 Attend Phys: Milton Sanford MD Discharge: Date of : 33 Report #: [id number] She had a history of diverticular disease, anemia and has required blood transfusions. She has also had an appendectomy. SOCIAL HISTORY: She is a retired accountant certified public. She does have a daughter who is a fire prevention bureau captain in [place]. Apparently, several grandchildren are E[employer]. Former smoker, quitting 1-2 years ago with at least a [id number] smoking history. FAMILY HISTORY: Negative for cancer. REVIEW OF SYSTEMS: ROS was done. Note the positives above. Other pertinent positives/negatives are no chest pain. She denies coughing up any blood. Has not felt very congested. She notes her breathing treatments at home are typically makes her feel nervous and shaky and tachycardic. It has not been much of an issue here in the hospital. Her appetite has been good. Denies seeing any blood in her sputum when she rarely does cough up something. No vomiting. Denies any blood in her stools. Has not had any lower extremity edema. Denies any syncopal episodes. Denies any recent falls. She has been weak. PHYSICAL EXAMINATION: GENERAL APPEARANCE: The patient is a woman who looks her stated age, if not younger. She is alert, quite pleasant, but again not a very good historian for more recent events. HEENT: Head is normocephalic. Sclerae nonicteric. Mucous membranes are moist. NECK: Negative for adenopathy. No JVD is noted. No supraclavicular adenopathy. HEART: Regular rate. Grade 1/6 systolic murmur. No S3 is heard. LUNGS: Sounds are clear, though breath sounds are diminished. She has a prolonged expiratory phase. No wheezing or crackles are heard. Chest wall is unremarkable. ABDOMEN: Soft. She denies any tenderness to palpation. No hepatosplenomegaly is noted. EXTREMITIES: She has no clubbing. Lower extremities are negative for edema. No calf tenderness. SKIN: Warm and dry. NEUROLOGIC: She is alert, cooperative, is moving all extremities. LABORATORY AND X-RAY FINDINGS: Chest x-ray done this morning is portable, no acute findings are noted. Small pleural effusion and some atelectasis noted previously have resolved. Her last echocardiogram done in November this year. EF 60%-65% with diastolic dysfunction. Had LVH (severe). RV was normal. She had severe aortic stenosis. Arterial blood gases done on admission, she had a pH of 7.34, pCO2 of 76, pO2 of 110, bicarbonate of 40 with a saturation of 97% on 3 liters. Follow up gases yesterday pH 7.36, pCO2 of 71, pO2 of 110, bicarbonate of 39 with a saturation of 97%. Last June when she was in the hospital, was running with pCO2 in the mid [place] [address] CONSULTATION Name: SHANTE JOLLY Boogie Room: [address] IN [facility]#: [id number] Admission: 03/20/18 Attend Phys: Milton Sanford MD Discharge: Date of : 33 Report #: [id number] Some additional information which has become available in archive reports. Did have a nonresolving infiltrates in 2007 while she was under treatment for her non-Hodgkin's lymphoma and had bronchoscopy done. Also had removal of a parathyroid adenoma in 2007, GI bleed requiring blood transfusions in 2006 from antral ulcers. She did have some other hospitalizations for bronchitis and COPD exacerbation in 2011. IMPRESSION: 1. Acute respiratory failure superimposed on chronic respiratory failure. Clinically, has improved. Does have severe chronic obstructive pulmonary disease. She is chronically hypercapnic and hypoxic. It does not appear she has been compliant with her medical regimen at home. This would contribute to her worsening hypercapnia. Long-term has a guarded prognosis. 2. History of non-Hodgkin's lymphoma. Had it some years back and then I believe it is a new diagnosis made again within the last year, status post radiation therapy. Reportedly, on followup imaging has had a good response to therapy. 3. Anemia, has had requirements for blood. 4. Past history of tobacco abuse. 5. Weakness and deconditioning. RECOMMENDATIONS: 1. Continue O2, wean as able. We will follow up blood gases tomorrow. She is a DNR, so she is not to be intubated. If needed, she notes she is willing to use the BiPAP though is not really wanting to be on it at this point. 2. Continue her bronchodilator regimen. She is on IV steroids and DuoNeb every 4 hours. Encouraged her to continue to take the neb treatments as many patients will note the side effect profile improves as they get acclimated to the medications. 3. May be able to get discharged within the next several days. <ELECTRONICALLY SIGNED> By: Melita Hendrix MD 03/22/18 [id number] Hendrix MD /nt
[2018-03-22 09:29] LABS: BE 10.3 mmol/L (-2 to +3); HCO3 37.1 mmol/L (22.0-26.0); PO2 67.8 mmHg (75.0-100.0); pH 7.387 (7.340-7.450)
[2018-03-22 09:33] LABS: PCO2 63.2 mmHg (35.0-45.0)
--- NOTE | 2018-03-22 10:51 | NUR ---
Plan for Pt to dc to [facility] at [place]. Faxed referral, waiting for call back with decision to accept. Pt in agreement with POC
--- NOTE | 2018-03-22 17:53 | NUR ---
PT UP IN ROOM WITH SB ASSIST. PT CALLS APPROPRIATELY FOR ASSIST. PT ON O2@2L NC.
--- NOTE | 2018-03-22 22:55 | NUR ---
Attempted to put patient on bipap pt would not tolerate.
[2018-03-23 03:50] VITALS: BP 131/57
--- NOTE | 2018-03-23 05:08 | NUR ---
A&O X3-4, DENIES PAIN. SR ON THE MONITOR. UP ADLIB. 2L O2. VITALS WNL. SEE MAR. SEE CHARTING. HOURLY ROUNDING FOR SAFETY.
[2018-03-23 08:29] VITALS: BP 130/56
--- NOTE | 2018-03-23 08:30 | NUR ---
ASSUMED PT CARE AT 0730, FULL ASSESMENT DONE CHARTED. PT ORINETED X4, FORGETFUL AT TIMES. PT DENIES PAIN, LUNGS CLEAR, ON 2L O2 SATS 94%, PT STATES SHE DOES NOT WANT TO WEAR THE BIPAP, DR TAVERAS SAW PT THIS AM, OK WITH DC TODAY IF OK WITH HOSPITALIST. PT RESTING IN BED, VSS, SA ON THE MONITOR. FALL PRECATUIONS IN PLACE. WILL CONTINUE WITH PLANOF CARE.
[2018-03-23 12:00] VITALS: BP 126/55
[2018-03-23] MEDS ORDERED: MELATONIN5 M1 PO (13:01)
[2018-03-23] MEDS ORDERED: DUONEB 2.5-0.5 M3 ML INH (13:01)
[2018-03-23] MEDS ORDERED: MUCINEX600 MG PO (13:01)
[2018-03-23] MEDS ORDERED: PREDNISONE 10 M10 MG PO (13:01)
[2018-03-23 14:06] VITALS: BP 126/55
--- NOTE | 2018-03-23 14:47 | NUR ---
Received order from physician to arrange d/c to [facility] today. Called facility and faxed orders. Chart copied. [facility] provided w/c van transportation. RN said she contacted family. No other needs identified.
== END 2018-03-23 15:20 | DRG 91 ==
LOC: M.ERS 11:34 → M.2W 13:33 → M.TBA-ER 13:33 → M.2W 14:12
PROVIDERS: Emergency Medicine; Internal Medicine Pulmonary Disease; ADMIT Internal Medicine
DX: G92 Toxic encephalopathy (principal); J96.21 Acute and chronic respiratory failure with hypoxia; J96.22 Acute and chronic respiratory failure with hypercapnia; J44.1 Chronic obstructive pulmonary disease with (acute) exacerbation; I50.32 Chronic diastolic (congestive) heart failure; R65.10 Systemic inflammatory response syndrome (SIRS) of non-infectious origin without acute organ dysfunction; I35.0 Nonrheumatic aortic (valve) stenosis; D64.9 Anemia, unspecified; F03.90 Unspecified dementia, unspecified severity, without behavioral disturbance, psychotic disturbance, mood disturbance, and anxiety; F41.9 Anxiety disorder, unspecified; Z66 Do not resuscitate; Z79.899 Other long term (current) drug therapy; Z79.82 Long term (current) use of aspirin; Z90.89 Acquired absence of other organs; Z85.72 Personal history of non-Hodgkin lymphomas; Z99.81 Dependence on supplemental oxygen; Z87.891 Personal history of nicotine dependence; Z92.3 Personal history of irradiation